=== PATIENT | male | born 1945 | race African-American/Black ===

== ENCOUNTER 2025-06-03 10:15 | Outpatient (RCR) | payer MEDICARE, OTHER, SELFPAY | END 2025-07-25 16:07 | disposition EPU | LOC: HO.WCC 10:15 | PROVIDERS: PCP Internal Medicine; Visit Provider Surgery Vascular Surgery | DX: E11.621 Type 2 diabetes mellitus with foot ulcer (principal); L97.422 Non-pressure chronic ulcer of left heel and midfoot with fat layer exposed; I70.244 Atherosclerosis of native arteries of left leg with ulceration of heel and midfoot; E11.40 Type 2 diabetes mellitus with diabetic neuropathy, unspecified; E11.610 Type 2 diabetes mellitus with diabetic neuropathic arthropathy; E11.22 Type 2 diabetes mellitus with diabetic chronic kidney disease; I12.0 Hypertensive chronic kidney disease with stage 5 chronic kidney disease or end stage renal disease; N18.6 End stage renal disease; Z99.2 Dependence on renal dialysis | CPT/HCPCS: 11042; 97597; 99212; 99214 ==